=== PATIENT | female | born 1965 | race Caucasian/White ===

== ENCOUNTER 2023-09-16 08:56 | Day surgery (SDC) | payer BC ==
[2023-09-09 09:28] VITALS: BMI 21.4
[2023-09-16] MEDS ORDERED: fentaNYL 50 mcg/mL 1 mL Vial ONE (12:40)
[2023-09-16] MEDS ORDERED: Rocuronium Bromide 10 MG/ML (10ML VIAL) ONE (12:40)
[2023-09-16] MEDS ORDERED: Lidocaine 1% PF 5 ML VIAL ONE (12:40)
[2023-09-16] MEDS ORDERED: PROPOFOL 20 ML ONE (12:40)
[2023-09-16] MEDS ORDERED: Sodium Chloride 0.9% 100 ML ONE (12:46)
[2023-09-16] MEDS ORDERED: CEFAZOLIN 2 GM VIAL ONE (12:46)
[2023-09-16] MEDS ORDERED: Dexamethasone 20 MG/5 ML VIAL ONE (13:10)
[2023-09-16] MEDS ORDERED: Ondansetron PF 4 MG/2 ML Vial ONE (13:10)
[2023-09-16] MEDS ORDERED: EPINEPHrine 1 MG/ML VIAL ONE (13:12)
[2023-09-16] MEDS ORDERED: Bupivacaine 0.25% HCL 30 ML VIAL ONE (13:12)
[2023-09-16] MEDS ORDERED: SUGAMMADEX SODIUM 200 MG/2 ML VIAL ONE (13:24)
== END 2023-09-16 15:24 | disposition home or self-care (01) ==
LOC: SDC 08:56
PROVIDERS: ATTEND Surgery
PROC: 0JB40ZZ Excision of Right Neck Subcutaneous Tissue and Fascia, Open Approach (ICD-10-PCS; principal; 2023-09-16)
DX: D17.0 Benign lipomatous neoplasm of skin and subcutaneous tissue of head, face and neck (principal); F32.A Depression, unspecified; Z90.710 Acquired absence of both cervix and uterus; Z79.899 Other long term (current) drug therapy
CPT/HCPCS: 88304; J0171; J0665; J1100; J2405; J2704; J3010; J3490